=== PATIENT | male | born 1980 | race Caucasian/White ===

== ENCOUNTER → 2022-03-21 14:50 | Outpatient (CLI) | payer SELFPAY ==
[2022-03-21 14:30] LABS: Basophils % 0.7 % (0.1-2.0); Eosinophils # 0.4 K/mm3 (0.0-0.4); Hematocrit 49.3 % (42.0-52.0); Hemoglobin 16.7 g/dL (14.1-18.0); Lymphocytes # 1.4 K/mm3 (0.7-4.5); Lymphocytes % 23.3 % (10-50); Mean Corpuscular HGB Conc 33.8 g/dL (31.8-35.4); Mean Corpuscular Hemoglobin 29.8 pg (27.0-31.2); Mean Corpuscular Volume 88.2 fl (80-94); Mean Platelet Volume 8.1 fl (7.4-10.4); Monocytes # 0.4 K/mm3 (0.1-1.0); Monocytes % 6.2 % (1.7-9.3); Neutrophils # 3.7 K/mm3 (1.8-7.8); Neutrophils % 63.8 % (37.0-80.0); Platelet Count 265 K/mm3 (142-424); Red Blood Count 5.59 M/mm3 (4.60-6.20); Red Cell Distribution Width 13.4 % (11.5-17.5); White Blood Count 5.8 K/mm3 (4.8-10.8)
[2022-03-21 14:49] LABS: Chloride 103 mmol/L (98-107); Potassium 4.5 mmoL/L (3.5-5.1); Sodium 140 mmol/L (136-145)
[2022-03-21 14:52] LABS: Alanine Aminotransferase 41 U/L (12-78); Albumin Level 4.7 g/dl (3.5-5.0); Albumin/Globulin Ratio 1.5 (1.1-1.8); Alkaline Phosphatase 55 U/L (38-126); Anion Gap 14.5 mEq/L (5-15); Aspartate Amino Transferase 35 U/L (17-59); Bilirubin,Total 0.6 mg/dl (0.2-1.3); Blood Urea Nitrogen 12 mg/dl (9-20); Carbon Dioxide 27 mmol/L (22.0-30.0); Cholesterol 226 mg/dl (140-200); Estimated Glomerular Filt Rate 67 ml/min (>60); GFR (African American) 81 ML/MIN (>60); Globulin 3.1 g/dL (1.3-3.2); Total Protein,Serum 7.8 g/dl (6.3-8.2); Triglycerides 262 mg/dl (30-150); VLDL Cholesterol 52 mg/dL (0-40)
[2022-03-21 14:53] LABS: Calcium 9.9 mg/dl (8.4-10.2); Chol/HDL Ratio 6.8 (1-3.5); Glucose 100 mg/dl (74-100); HDL Cholesterol 33 mg/dl (40-60)
[2022-03-21 15:03] LABS: Direct LDL Cholesterol 135.25 mg/dL (100-129)
[2022-03-21 15:23] LABS: Thyroid Stimulating Hormone 0.92 uIU/mL (0.465-4.68)
[2022-03-21 16:11] LABS: Prostate Specific Ag Screen 0.6 ng/ml (0.0-4.0)
[2022-03-21 17:47] LABS: 25-OH Vitamin D, Total 20.3 ng/mL (30-100)
== END ==
PROVIDERS: PCP Physician Assistant; Visit Provider Physician Assistant
DX: R07.9 Chest pain, unspecified (principal); I10 Essential (primary) hypertension; Z12.5 Encounter for screening for malignant neoplasm of prostate; Z79.899 Other long term (current) drug therapy
CPT/HCPCS: 80053; 80061; 82306; 84443; 85025; G0103

== ENCOUNTER 2022-04-25 11:00 | Outpatient (RCR) | payer BC, SELFPAY | END 2022-04-25 11:05 | disposition home or self-care (01) | LOC: PT 11:00 | PROVIDERS: PCP Physician Assistant; Visit Provider Orthopaedic Surgery | DX: G89.11 Acute pain due to trauma (principal); M54.2 Cervicalgia; M54.6 Pain in thoracic spine; M54.50 Low back pain, unspecified | CPT/HCPCS: 97010; 97014; 97110; 97140; 97163; 97530; G0283 ==

== ENCOUNTER → 2022-06-25 16:06 | Outpatient (CLI) | payer BC, SELFPAY ==
[2022-06-25 19:58] LABS: Basophils # 0.1 K/mm3 (0-0.2); Eosinophils # 0.3 K/mm3 (0.0-0.4); Eosinophils % 5.1 % (0.1-12.0); Hematocrit 44.2 % (42.0-52.0); Hemoglobin 14.4 g/dL (14.1-18.0); Lymphocytes # 1.3 K/mm3 (0.7-4.5); Lymphocytes % 23.9 % (10-50); Mean Corpuscular HGB Conc 32.6 g/dL (31.8-35.4); Mean Corpuscular Volume 88.8 fl (80-94); Mean Platelet Volume 8.1 fl (7.4-10.4); Monocytes # 0.4 K/mm3 (0.1-1.0); Monocytes % 6.5 % (1.7-9.3); Neutrophils # 3.5 K/mm3 (1.8-7.8); Neutrophils % 63.5 % (37.0-80.0); Platelet Count 258 K/mm3 (142-424); Red Blood Count 4.98 M/mm3 (4.60-6.20); Red Cell Distribution Width 13.8 % (11.5-17.5); White Blood Count 5.5 K/mm3 (4.8-10.8)
[2022-06-25 20:52] LABS: Alanine Aminotransferase 54 U/L (12-78); Albumin Level 4.5 g/dl (3.5-5.0); Albumin/Globulin Ratio 1.6 (1.1-1.8); Alkaline Phosphatase 53 U/L (38-126); Anion Gap 12.3 mEq/L (5-15); Aspartate Amino Transferase 48 U/L (17-59); Bilirubin,Total 0.4 mg/dl (0.2-1.3); Blood Urea Nitrogen 17 mg/dl (9-20); Calcium 9.2 mg/dl (8.4-10.2); Carbon Dioxide 29 mmol/L (22.0-30.0); Chloride 102 mmol/L (98-107); Chol/HDL Ratio 6.8 (1-3.5); Cholesterol 204 mg/dl (140-200); Estimated Glomerular Filt Rate 73 ml/min (>60); GFR (African American) 89 ML/MIN (>60); Globulin 2.8 g/dL (1.3-3.2); Glucose 86 mg/dl (74-100); HDL Cholesterol 30 mg/dl (40-60); Potassium 4.3 mmoL/L (3.5-5.1); Sodium 139 mmol/L (136-145); Total Protein,Serum 7.3 g/dl (6.3-8.2)
[2022-06-25 20:55] LABS: Triglycerides 473 mg/dl (30-150)
[2022-06-25 21:03] LABS: Direct LDL Cholesterol 119.74 mg/dL (100-129)
[2022-06-25 21:09] LABS: 25-OH Vitamin D, Total 14.6 ng/mL (30-100)
[2022-06-25 21:23] LABS: Thyroid Stimulating Hormone 1.37 uIU/mL (0.465-4.68)
== END ==
PROVIDERS: PCP Physician Assistant; Visit Provider Physician Assistant
DX: I10 Essential (primary) hypertension (principal); E55.9 Vitamin D deficiency, unspecified; Z79.899 Other long term (current) drug therapy
CPT/HCPCS: 80053; 80061; 82306; 84443; 85025

== ENCOUNTER → 2022-07-05 15:11 | Outpatient (CLI) | payer BC, SELFPAY | PROVIDERS: PCP Physician Assistant; Visit Provider Physician Assistant | DX: G47.33 Obstructive sleep apnea (adult) (pediatric) (principal) | CPT/HCPCS: G0399 ==

== ENCOUNTER → 2022-12-24 15:26 | Outpatient (CLI) | payer BC, SELFPAY ==
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
== END ==
PROVIDERS: PCP Physician Assistant; Visit Provider Physician Assistant
DX: S69.92XA Unspecified injury of left wrist, hand and finger(s), initial encounter (principal); Y99.9 Unspecified external cause status
CPT/HCPCS: 73130

== ENCOUNTER 2023-05-21 20:59 | Outpatient (CLI) | payer BC, SELFPAY | END 2023-05-21 23:59 | LOC: LAB.DROPOF 20:59 | PROVIDERS: PCP Nurse Practitioner Family; Visit Provider Nurse Practitioner Family | DX: R05.9 Cough, unspecified (principal); R06.00 Dyspnea, unspecified; H92.03 Otalgia, bilateral | CPT/HCPCS: 87070 ==

== ENCOUNTER 2023-06-26 14:46 | Outpatient (CLI) | payer OTHER, SELFPAY ==
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
== END 2023-06-26 23:59 ==
PROVIDERS: PCP Physician Assistant; Visit Provider Physician Assistant
DX: M25.562 Pain in left knee (principal); M54.50 Low back pain, unspecified
CPT/HCPCS: 72110; 73562

== ENCOUNTER 2023-07-16 17:02 | Outpatient (CLI) | payer OTHER, SELFPAY ==
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
== END 2023-07-16 23:59 | disposition home or self-care (01) ==
LOC: RAD 17:03
PROVIDERS: PCP Physician Assistant; Visit Provider Physician Assistant
DX: M54.9 Dorsalgia, unspecified (principal); V89.2XXA Person injured in unspecified motor-vehicle accident, traffic, initial encounter
CPT/HCPCS: 72148; 76376

== ENCOUNTER 2023-12-02 11:34 | Outpatient (CLI) | payer BC, SELFPAY ==
--- NOTE | 2023-12-02 | CA_ITS ---
APPROVED REPORT Exam: Exercise Treadmill Technologist: Carmelita Alcala, Ht: 6 ft 1 in Wt: 327 lbs BSA: 2.65 m2 HR: 75 bpm BP: 149/99 mmHg Rhythm: NSR Medical History Medications: Vit D3,,,,, Valsartan,,,,, Nitroglycerin,,,,, Metoprolol Succinate ER,,,,, Allergies: lisinopril Stress Test Details Test: Petros HR Resting HR: 82 bpm Max Heart Rate (APMHR): 177 bpm Max HR Achieved: 159 bpm Target HR (85% APMHR): 150 bpm % of APMHR: 90 Recovery HR: 98 bpm HR response to stress: Normal HR response to stress BP Resting BP: 149.0/99 mmHg Max BP: 251/127 mmHg Recovery BP: 221.0/125.0 mmHg BP response to stress: Abnormal hypertensive response to stress. ECG Resting ECG: NSR Stress EC.[address] depression Arrhythmia: PVCs Clinical Exercise duration: 07:20 min Highest Stage Achieved: Exercise capacity: 10.1 METs Overall Exercise Capacity for Age: Average Stress ECG Conclusion Pt had chest tightness and dyspnea Ectopy: PVC ST changes: 0.[address] depression Conclusion: Average exercise capacity. Normal ekg response to exercise. Hypertensive BP response to exercise. BP control is recommended. Test Summary REST . . . . . . . Standing REST . . . . . . . Sitting REST 03:39 0.0 0.0 82 . 149/ 99 . . Stage 1 01:00 10.0 1.7 109 . . . . Stage 1 02:00 10.0 1.7 112 . . . . Stage 1 03:00 10.0 1.7 122 . 150/ 80 . . Stage 2 01:00 12.0 2.5 127 . . . . Stage 2 02:00 12.0 2.5 132 . . . . Stage 2 03:00 12.0 2.5 140 . 164/ 94 . . Stage 3 01:00 14.0 3.4 146 . . . . Stage 3 01:20 14.0 3.4 152 . . . Stop exercise at 07:20 RECOVERY 01:00 0.0 0.0 135 . . . . RECOVERY 02:00 0.0 0.0 108 . . . . RECOVERY 03:00 0.0 0.0 103 . 251/127 . . RECOVERY 04:00 0.0 0.0 99 . 206/119 . . RECOVERY 05:00 0.0 0.0 98 . 217/116 . . RECOVERY 06:00 0.0 0.0 97 . 217/116 . . RECOVERY 06:56 0.0 0.0 102 . 221/125 . . Electronically signed by : Gabriela Fountain MD 12/16/2023 14:07:11
--- NOTE | 2023-12-02 11:35 | NM_ITS ---
APPROVED REPORT Exam: Nuclear Stress Test Indication: Chest pain, SOB, Fatigue, HTN, High cholesterol, Family history, Dysrhythmia Patient Location: Outpatient Stress Tech: Carmelita Alcala [place] Tech:Leila Reid, ARRT, RT (R)(N) Ht: 6 ft 1 in Wt: 327 lbs HR: 82 bpm BP: 149/99 mmHg BSA: 2.65 m2 Rhythm: NSR TID: 0.96 BMI: 43.1 History: Chest pain, SOB, Fatigue, HTN, High cholesterol, Family history, Dysrhythmia Procedure: Patient exercised on Petros protocol 7:20 minutes and sec, resting heart rate 82 bpm, resting blood pressure 149/99 mmHg, with exercise maximum heart rate achived was 159 bpm which is 90 % of the maximum predicted heart rate and blood pressure was 251/127 mmHg. Test was stopped due to SOB. Patient denied any complaint of chest pain. Patient has average exercise capacity, achieved 10.1 METs of workload on treadmill, the blood pressure response to exercise was hypertensive. Cardiac Stress and Resting SPECT Images: Cardiac Stress and Resting SPECT images were obtained using technetium 99m Myoview 30.1 mCi stress and 10.38 mCi at rest. Resting and stress imaging in supine positions demonstrate a small sized, mild, fixed perfusion defect in the basal inferior LV wall. This is no longer visualized with prone stress imaging. Findings are suggestive of diaphragmatic attenuation. Gated imaging demonstrates low-normal global and regional LV systolic function. LVEF is calculated at 50%. Conclusion: Technically difficult imaging. Diaphragmatic attenuation is present. No focal evidence of fixed or reversible perfusion defects. Gated imaging demonstrates low-normal global and regional LV systolic function. LVEF is calculated at 50%. Of note, the patient has a marked hypertensive response to exercise (peak stress BP 251/127). BP control is recommended. Electronically signed by : Gabriela Fountain MD 12/02/2023 15:28:13
[2023-12-02] MEDS: ISOTOPE MYOVIEW (PER STUDY) 1 DOSE IV (14:16)
[2023-12-02] MEDS: SODIUM CHLORIDE 0.9% 10ML SYR (RAD ONLY) 10 ML IV ×2 (14:16)
== END 2023-12-02 23:59 | disposition home or self-care (01) ==
LOC: RAD 11:35
PROVIDERS: PCP Physician Assistant; Visit Provider Physician Assistant
DX: R07.9 Chest pain, unspecified (principal); R42 Dizziness and giddiness; R53.83 Other fatigue; G47.33 Obstructive sleep apnea (adult) (pediatric); I10 Essential (primary) hypertension; D86.9 Sarcoidosis, unspecified
CPT/HCPCS: 78452; 93017; 93018; A9502

== ENCOUNTER 2023-12-08 12:48 | Outpatient (CLI) | payer BC, SELFPAY ==
--- NOTE | 2023-12-08 12:50 | CA_ITS ---
APPROVED REPORT EXAM: Comprehensive 2D, Doppler, and color-flow Echocardiogram Spindle Carver: Nelia Potter RDCS Ht: 6 ft 1 in Wt: 327lbs BSA: 2.65 BP: 164/97 mmHg Indications: CP,HTN M-Mode Dimensions RVDd 1.52 cm (0.9-2.6) LA Diam 4.09 cm (1.9-4.0) LVDd 5.25 cm (3.5-5.7) LVDs 3.81 cm (3.5-5.7) IVSd 0.85 cm (0.6-1.1) PWd 1.10 cm (0.6-1.1) EF (Teich) 52.90% FS 27.40% EDV (Teich) 132.40 mL TAPSE 2.12 (<1.7) ESV (Teich) 62.30 mL LV Diastology E Decel Time 190 (160-240 msec) E/A Ratio 1.3 Mitral Valve MV E Max Black. 68.0 (40-130 cm/s) MV A Velocity 54.0 (40-130 cm/s) E/A Ratio 1.25 MV PHT 56.0 ms Left Ventricle The left ventricle is normal size. The left ventricular systolic function is normal. The left ventricular ejection fraction is within the normal range. There is normal left ventricular wall thickness. There is normal LV segmental wall motion. The left ventricular diastolic function is normal. LVEF is 55%. Right Ventricle The right ventricle is normal size. The right ventricular systolic function is normal. Atria The left atrium size is normal. The right atrium size is normal. There is no Doppler evidence of interatrial shunt. Aortic Valve The aortic valve opens well. There is no aortic valvular stenosis. Trace aortic regurgitation. Mitral Valve The mitral valve is normal in structure. No mitral regurgitation. Tricuspid Valve The tricuspid valve leaflets are thin and pliable. Trace tricuspid regurgitation. There is insufficient TR jet to estimate RVSP. Pulmonic Valve The pulmonary valve is normal in structure. Trace pulmonic regurgitation. Great Vessels The aortic root is normal in size. The IVC is not well-visualized. IVC is normal in size and collapses >50% with inspiration. Pericardium There is no pericardial effusion. Other Information Study Quality: Adequate Conclusion Normal biventricular systolic function. No significant valvular stenosis or regurgitation. Electronically signed by : Gabriela Fountain MD 12/12/2023 11:23:50
== END 2023-12-08 23:59 | disposition home or self-care (01) ==
LOC: RT 12:48
PROVIDERS: PCP Physician Assistant; Visit Provider Physician Assistant
DX: I10 Essential (primary) hypertension (principal); R07.9 Chest pain, unspecified; R42 Dizziness and giddiness; R53.83 Other fatigue
CPT/HCPCS: 93306

== ENCOUNTER 2023-12-11 10:28 | Outpatient (CLI) | payer BC, SELFPAY ==
--- NOTE | 2023-12-11 10:29 | CT_ITS ---
FINAL REPORT TECHNIQUE: The patient was injected with IV contrast. Axial images were obtained of the chest by computed tomography. Precontrast images were also obtained. This study was performed with techniques to keep radiation doses as low as reasonably achievable (ALARA). Individualized dose reduction techniques using automated exposure control or adjustment of mA and/or kV according to the patient's size were employed. CLINICAL HISTORY: chest pain/htn. COMPARISON: None FINDINGS: CT OF THE CHEST WITH AND WITHOUT CONTRAST: There is no axillary adenopathy. There are multiple mildly enlarged mediastinal nodes which are nonspecific and favored to be reactive. There is no mediastinal mass identified. Heart size is normal. There is no pericardial or pleural effusion identified. Multiple bilateral pulmonary nodules are present measuring less than 1 cm. There are several calcified granulomas in the left lung. Limited images of the upper abdomen demonstrate mild fatty infiltration of the liver. There are multiple low-attenuation splenic nodules which are favored to represent granulomas. Postcontrast images demonstrate no abnormal enhancement. IMPRESSION: Multiple pulmonary nodules worrisome for mycobacterial/fungal disease or possible sarcoidosis. Multiple splenic nodules, likely granulomas. Reviewed, Interpreted and Dictated by Abdoul Saravia III, MD Transcribed by Roseline Castro Authenticated and [facility]
[2023-12-11 11:15] LABS: Blood Urea Nitrogen 17 mg/dl (9-20); Estimated Glomerular Filt Rate 66 ml/min (>60); GFR (African American) 80 ML/MIN (>60)
[2023-12-11] MEDS: SODIUM CHLORIDE 0.9% 10ML SYR (RAD ONLY) 10 ML IV (11:35)
[2023-12-11] MEDS: IOPAMIDOL-370 (76%);100ML BOTTLE 75 ML IV (11:35)
== END 2023-12-11 23:59 | disposition home or self-care (01) ==
LOC: RAD 10:29
PROVIDERS: PCP Physician Assistant; Visit Provider Physician Assistant
DX: D86.9 Sarcoidosis, unspecified (principal); R07.9 Chest pain, unspecified; R42 Dizziness and giddiness; R53.83 Other fatigue; G47.33 Obstructive sleep apnea (adult) (pediatric); I10 Essential (primary) hypertension
CPT/HCPCS: 36415; 71270; 82565; 84520; Q9967

== ENCOUNTER 2024-01-15 09:51 | Outpatient (CLI) | payer BC, SELFPAY ==
[2024-01-15 10:15] LABS: Basophils # 0.1 K/mm3 (0-0.2); Basophils % 0.9 % (0.1-2.0); Eosinophils # 0.3 K/mm3 (0.0-0.4); Eosinophils % 5.2 % (0.1-12.0); Hematocrit 41.7 % (42.0-52.0); Hemoglobin 14.6 g/dL (14.1-18.0); Lymphocytes # 1.1 K/mm3 (0.7-4.5); Lymphocytes % 21.7 % (10-50); Mean Corpuscular HGB Conc 35.1 g/dL (31.8-35.4); Mean Corpuscular Hemoglobin 29.9 pg (27.0-31.2); Mean Corpuscular Volume 85.1 fl (80-94); Mean Platelet Volume 7.2 fl (7.4-10.4); Monocytes # 0.4 K/mm3 (0.1-1.0); Monocytes % 7.3 % (1.7-9.3); Neutrophils # 3.2 K/mm3 (1.8-7.8); Neutrophils % 64.7 % (37.0-80.0); Platelet Count 192 K/mm3 (142-424); White Blood Count 4.9 K/mm3 (4.8-10.8)
[2024-01-15 10:38] LABS: Alanine Aminotransferase 52 U/L (12-78); Albumin Level 4.4 g/dl (3.5-5.0); Alkaline Phosphatase 41 U/L (38-126); Aspartate Amino Transferase 38 U/L (17-59); Bilirubin,Direct 0.3 mg/dl (0.0-0.4); Bilirubin,Indirect 0.5 mg/dL (0.0-0.9); Bilirubin,Total 0.8 mg/dl (0.2-1.3); Bilirubin,Unconjugated 0.5 mg/dL (0.0-1.1); Blood Urea Nitrogen 16 mg/dl (9-20); Calcium 9.3 mg/dl (8.4-10.2); Carbon Dioxide 28 mmol/L (22.0-30.0); Chloride 106 mmol/L (98-107); Chol/HDL Ratio 5.5 (1-3.5); Cholesterol 171 mg/dl (140-200); Estimated Glomerular Filt Rate 60 ml/min (>60); GFR (African American) 73 ML/MIN (>60); Glucose 117 mg/dl (74-100); HDL Cholesterol 31 mg/dl (40-60); Magnesium 1.7 mg/dl (1.6-2.3); Sodium 135 mmol/L (136-145); Total Protein,Serum 6.8 g/dl (6.3-8.2); Triglycerides 163 mg/dl (30-150); VLDL Cholesterol 33 mg/dL (0-40)
[2024-01-15 10:49] LABS: Direct LDL Cholesterol 105.47 mg/dL (100-129)
[2024-01-15 11:09] LABS: Prostate Specific Ag Screen 0.6 ng/ml (0.0-4.0); Thyroid Stimulating Hormone 1.13 uIU/mL (0.465-4.68)
== END 2024-01-15 23:59 | disposition home or self-care (01) ==
LOC: LAB 09:51
PROVIDERS: PCP Physician Assistant; Visit Provider Physician Assistant
DX: D86.9 Sarcoidosis, unspecified (principal); I10 Essential (primary) hypertension; G47.33 Obstructive sleep apnea (adult) (pediatric); R53.83 Other fatigue; R93.89 Abnormal findings on diagnostic imaging of other specified body structures
CPT/HCPCS: 36415; 80048; 80061; 80076; 83735; 84439; 84443; 85025; G0103

== ENCOUNTER 2024-01-23 09:42 | Outpatient (CLI) | payer BC, SELFPAY ==
--- NOTE | 2024-01-23 09:45 | US_ITS ---
PROCEDURE INFORMATION: Exam: US Scrotum and US Duplex Artery and Vein, Scrotum, Complete Exam date and time: 01/23/2024 10:02 AM Age: 43 years old Clinical indication: Other: Itchiness RT testi; Additional info: Pain TECHNIQUE: Imaging protocol: Real-time ultrasound of the scrotum. Real-time duplex ultrasound scan of the arterial and venous flow of the scrotum with B-mode, color Doppler flow and spectral waveform analysis. Complete exam. Duplex exam was performed to evaluate for torsion and other vascular conditions. COMPARISON: No relevant prior studies available. FINDINGS: Right testicle: Measures 4.9 x 2.4 x 2.7 cm demonstrates homogeneous echotexture. Left testicle: Measures 5.2 x 2.4 x 3.3 cm demonstrates homogeneous echotexture. Epididymides: LEFT epididymal cyst measuring 10 mm. Scrotum/soft tissues: Trace asymmetric LEFT hydrocele and a small LEFT scrotal cyst measuring 3 mm. No evidence of varicocele on either side. Other findings: Doppler examination of the testicles with pulsed wave and color images was performed which demonstrate arterial/venous waveforms within normal limits. IMPRESSION: 1. LEFT epididymal cyst/spermatocele. 2. Trace LEFT hydrocele. 3. No discrete testicular mass or abnormality. 4. Blood flow visualized to both testicles.
== END 2024-01-23 23:59 | disposition home or self-care (01) ==
LOC: RAD 09:43
PROVIDERS: PCP Physician Assistant; Visit Provider Physician Assistant
DX: N50.819 Testicular pain, unspecified (principal)
CPT/HCPCS: 76870

== ENCOUNTER 2024-01-28 10:11 | Outpatient (CLI) | payer BC, SELFPAY ==
--- NOTE | 2024-01-28 10:11 | MR_ITS ---
APPROVED REPORT Pedodontist: CLINICAL INDICATION Pulmonary nodules and granulomas. Sarcoidosis evaluation TECHNIQUE Image Acquisition: Cardiac magnetic resonance (CMR) was performed on Siemens Espree MRI 1.5T scanner. Software platform sequences were performed using the Siemens ColorModules MR B19 platform. A set of three-plane, low-resolution, large [id number] localizers were initially acquired. Then axial, coronal, sagittal TrueFISP, as well as axial HASTE images, were obtained. These were followed by gated TrueFISP breathold cinematic sequences obtained in the short axis with 8 mm slices and 2 mm gaps, 2-chamber (vertical long axis), 3-chamber, 4-chamber (horizontal long axis). A bolus of contrast was injected intravenously with first-pass sequences obtained in the short axis and four-chamber planes. After approximately 10 minutes, a TI cannery tender engineer sequence was performed to determine the optimal TI time. Using the optimized TI time, delayed contrast enhancement segmented inversion???recovery TurboFLASH sequences were obtained in the short axis, 2-chamber, 3-chamber, and 4-chamber projections. 2D-velocity phase mapping was performed. Functional parameters were calculated by offline analysis on an independent workstation ([employer] Platform, [employer]). Contrast: ProHance??? (Gadoteridol) FINDINGS MORPHOLOGY AND FUNCTION Left ventricle: The left ventricle is normal in size. The indexed left ventricular end-diastolic volume (LVEDVi) is 59 ml/m2 (reference range 57-105 ml/m2 in males, 56-96 ml/m2 in females). Normal left ventricular systolic function is present. There is increase in left ventricular wall thickness, measuring up to 12.2 mm. There are no regional wall motion abnormalities noted. LVEF is calculated at 59.3% (reference range 57-77%). Right ventricle: The right ventricle is normal in size. The indexed right ventricular end-diastolic volume (RVEDVi) is 68 ml/m2 (reference range 61-121 ml/m2 in males, 48-112 ml/m2 in females). There is borderline reduction in right ventricular systolic function. RVEF is calculated at 46.0% (reference range 52-72% in males, 51-71% in females). Atria: The left atrium is normal in size. The maximum indexed left atrial volume is 33 ml/m2 (reference range 26-52 ml/m2 in males, 27-53 ml/m2 in females). The right atrium is normal in size. The maximum indexed right atrial volume is 20 ml/m2 (reference range 18-90 ml/m2). Aorta: The diameter of the aortic annulus is normal, measuring 28 mm (coronal view reference range 21-30 mm in males, 19-27 mm in females). The diameter of the aortic sinus is normal, measuring 36 mm (coronal view reference range 25-42 mm in males, 24-36 mm in females). The diameter of the sinotubular junction is normal, measuring 30 mm (coronal view reference range 18-32 mm in males, 18-28 mm in females). The diameters of the ascending and descending thoracic aorta are normal. Main pulmonary artery: The main pulmonary artery diameter is normal. Pericardium: The pericardial thickness is normal. The pericardial thickness measures 1.2 mm (normal < 4.0 mm). There is no pericardial effusion. VALVES The valvular morphologies in the visualized sequences appear normal. There is no significant valvular stenosis or regurgitation of the mitral, aortic, tricuspid, or pulmonic valve noted visually. Systolic anterior motion of the mitral valve is not visualized. Ratio of pulmonary to systemic flow, Qp:Qs ratio = 1.29 (normal < or = 1.2, hemodynamically significant shunt > 1.5), demonstrating no evidence of hemodynamically significant shunt. TISSUE CHARACTERIZATION Resting Perfusion: Normal myocardial blood flow at rest. No evidence of resting hypoperfusion. Myocardial Fibrosis and/or edema: Normal gadolinium kinetics are present. No evidence of late gadolinium enhancement is noted, consistent with absence of myocardial scarring, infarction, or necrosis. T2-weighted imaging demonstrates no evidence of myocardial edema or inflammation. OTHER Multiple, small, T1-hyperintense pulmonary nodules are noted bilaterally. IMPRESSION Normal LV size with normal LV systolic function. LVEDVi= 59 ml/m2 and LVEF= 59.3%. Increase in LV wall thickness, measuring up to 12.2 mm Normal RV size with borderline reduction in RV systolic function. RVEDVi= 68 ml/m2 and RVEF= 46.0%. No atrial enlargement. No CMR evidence of myocardial scarring, infarction, or necrosis. No evidence of myocardial edema or inflammation. Perfusion analysis demonstrates normal blood flow at rest with no evidence of resting hypoperfusion. Ratio of pulmonary to systemic flow, Qp:Qs ratio = 1.29 (normal < or = 1.2, hemodynamically significant shunt > 1.5), demonstrating no evidence of hemodynamically significant shunt. Incidental finding of multiple, small, T1-hyperintense pulmonary nodules noted bilaterally. Overall, this CMR demonstrates normal LV systolic function with borderline reduction in RV systolic function. No CMR evidence of infitrative cardiomyopathy, namely cardiac sarcoidosis. COMPARISON None CRITICAL RESULT None COMMUNICATION Per this written report The findings of this cardiac MR were reviewed, reported, and signed by Meir Fountain MD (Pressure Test Operator). Conclusion Electronically signed by : Gabriela Fountain MD 02/08/2024 16:31:29
[2024-01-28] MEDS: GADOTERIDOL INJ 20ML SYRINGE 20 ML IV (12:01)
[2024-01-28] MEDS: SODIUM CHLORIDE 0.9% 10ML SYR (RAD ONLY) 10 ML IV (12:01)
[2024-01-28] MEDS: GADOTERIDOL INJ 10ML SYRINGE 10 ML IV (12:01)
[2024-01-28] MEDS: SODIUM CHLORIDE 0.9% 50ML BAG 25 ML IV (12:01)
== END 2024-01-28 23:59 | disposition home or self-care (01) ==
LOC: RAD 10:11
PROVIDERS: PCP Physician Assistant; Visit Provider Physician Assistant
DX: D86.9 Sarcoidosis, unspecified (principal); R93.89 Abnormal findings on diagnostic imaging of other specified body structures; R53.83 Other fatigue
CPT/HCPCS: 75561; A9576